=== PATIENT | male | born 1940 | race Caucasian/White ===

== ENCOUNTER 2018-12-06 10:23 | Outpatient (CLI) | payer MEDICARE ==
--- NOTE | 2018-12-06 12:21 | MRI ---
MRI LUMBAR SPINE WITHOUT CONTRAST: Date: 12/06/18 INDICATION: Bilateral hip pain and numbness. COMPARISON: None. FINDINGS: There is Grade I anterolisthesis of L4 on L5. Conus is seen to terminate at approximately L1. Bone ma rrow signal intensity appears within normal limits. Visualized retroperitoneum and perivertebral soft tissues appear within normal limits. At L5-S1, there is asymmetric to the left broad based disc bulge with facet hypertrophy, inducing mil d foraminal narrowing. The disc bulge also induces mild to moderate left lateral recess narrowing wit hout definite impingement of the traversing left S1 nerve root. At L4-5, there is severe facet joint degenerative change, ligamentum flavum hypertrophy, Grade I ante rolisthesis, and a broad based bulge inducing severe central canal narrowing with moderate to severe left and mild right neural foraminal narrowing. At L3-4, there is a broad based bulge with facet joint degenerative change inducing mild bilateral ne ural foraminal narrowing and mild central canal narrowing. At L2-3, there is a broad based bulge with facet hypertrophy inducing neural foraminal narrowing. At L1-2, there is no appreciable central canal or neural foraminal narrowing. At T12-L1, there is a mild broad based disc bulge, but no appreciable central canal or neural foramin al narrowing. IMPRESSION: 1. 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 There is moderate to sally re left and mild right neural foraminal narrowing. 2. Mild central canal narrowing at L3-4 with mild bilateral neural foraminal narrowing. 3. Mild to moderate left lateral recess narrowing at L5-S1 without definite impingement of the trave rsing left S1 nerve root. POS: [facility]
== END 2018-12-06 10:24 | disposition home or self-care (01) ==
LOC: TBSIIMAG 10:23
PROVIDERS: ATTEND Neurological Surgery
DX: M48.062 Spinal stenosis, lumbar region with neurogenic claudication (principal); M48.07 Spinal stenosis, lumbosacral region; M51.86 Other intervertebral disc disorders, lumbar region
CPT/HCPCS: 72148